=== PATIENT | female | born 1975 | race Caucasian/White ===

== ENCOUNTER 2017-10-23 23:16 | Emergency (ER) | payer MEDICAID ==
[~2017-10-23] VITALS: Ht 152.4 cm; Wt 56.0 kg
[2017-10-24] MEDS ORDERED: ONDANSETRON 4MG ODT PO STA (02:02)
[2017-10-24] MEDS ORDERED: MAGNESIUM/ALUMINUM HYDROXIDE/SIMETHICONE 30ML UDC PO STA (02:02)
[2017-10-24] MEDS ORDERED: FAMOTIDINE 20MG TABLET PO ONE (02:15)
[2017-10-24 02:42] LABS: CLARITY URINE CLEAR (CLEAR); COLOR URINE YELLOW (YELLOW); KETONES URINE NEGATIVE (NEGATIVE); LEUKOCYTE ESTERASE URINE 1+ (NEGATIVE); NITRITE URINE NEGATIVE (NEGATIVE); OCCULT BLOOD URINE NEGATIVE (NEGATIVE); PROTEIN URINE NEGATIVE (NEGATIVE); UROBILINOGEN URINE 0.2 E.U./dL (0.2-1.0)
[2017-10-24 03:04] LABS: BASOPHILS % 0.7 % (0.0-2.0); EOSINOPHILS % 0.4 % (0.0-5.0); HEMATOCRIT. 36.5 % (36.0-48.0); HEMOGLOBIN. 12.6 g/dL (12.0-16.0); MEAN CORPUSCULAR HEMOGLOBIN 30.9 pg (28.0-32.0); MEAN CORPUSCULAR VOLUME 89.6 fL (81.0-99.0); MEAN PLATELET VOLUME 9.9 fl (7.4-10.4); MONOCYTES % 4.9 % (2.0-8.0); PLATELET 184 x1000/uL (130-400); RED BLOOD CELL COUNT 4.07 mill/uL (4.2-5.4); RED CELL DISTRIBUTION WIDTH 12.9 % (11.6-14.6)
[2017-10-24 03:14] LABS: CHLORIDE 112 mEq/L (98-107)
[2017-10-24 03:15] LABS: PROTHROMBIN TIME 10.7 sec (9.4-11.6)
[2017-10-24 03:31] LABS: HCG SCREEN NEGATIVE
[2017-10-24 04:52] VITALS: BP 110/70
== END 2017-10-24 05:38 | disposition home or self-care (01) ==
LOC: ER 23:16
DX: N39.0 Urinary tract infection, site not specified (principal); N13.30 Unspecified hydronephrosis; Q63.2 Ectopic kidney
CPT/HCPCS: 36415; 76700; 80053; 81003; 83690; 84703; 85025; 85610; 99285; Q0162